=== PATIENT | female | born 1985 | race Asian ===

== ENCOUNTER 2016-05-23 18:35 | Emergency (ER) | payer OTHER ==
[~2016-05-23] VITALS: Ht 144.8 cm; Wt 66.8 kg
[2016-05-23 18:38] VITALS: BP 148/99; PULSE 70; RESP 20; O2SAT 99
--- NOTE | 2016-05-23 19:05 | ED.REPORT ---
HPI-General Illness Date of Service May 23, 2016 ED Provider: Ever Santos MD Pt is a 30 y.o. female who presents to the ED c/o left breast pain onset 1 week ago. She reports that she experienced similar pain several months ago and there was no clear etiology. Pt denies currently breast feeding, estrogen therapy, and hx of DVT. Pt reports that her last period ended on 05/07/16. She also states that she had a mammogram performed last year. Nursing Notes Stated Complaint: LEFT BREAST PAIN Chief Complaint: General Complaint Nursing Notes Reviewed: Yes Allergies: Coded Allergies: shellfish derived (Verified Allergy, Severe, 05/23/16) hydromorphone (Verified Allergy, Intermediate, 05/23/16) Scheduled PRN Ibuprofen (Ibuprofen) 800 Mg Tablet 800 MG PO TID PRN PRN For Pain General Time Seen by MD: 18:49 Chief Complaint Other (Left breast pain) Hx Obtained From: Patient Arrived By: Walk-in Sudden in Onset?: Yes Onset Occurred: 1 week ago Symptom Duration: Since onset Quality: Painful Severity: Current: Moderate Recent Healthcare: No recent doctor visit, No recent hospitalization Similar Sx Previous: Yes Past Medical History Past Medical History Reports: Asthma Past Surgical History None-reported Ambulatory Status Independent Review of Systems Full Review of Systems Cardiovascular: Reports: Chest pain (Left breast) Complete sys rev & neg: except as marked. Physical Exam Vital Signs Vital Signs Date Time Temp Pulse Resp B/P Pulse Ox O2 Delivery O2 Flow Rate FiO2 05/23/16 18:38 36.7 70 20 148/99 99 Room Air Initial VS: Reviewed General/Constitutional: Well-developed, Well-nourished Head / Eyes: Atraumatic, Normocephalic Abdomen / GI: Soft, Non-tender Extremities: Vascular intact, Neuro intact Skin: Warm, Dry, No cyanosis Neurologic: Alert, Oriented, Nonfocal Psychiatric: Mood/affect normal, Behavior normal, Normal thought content General/Constitutional: Awake, Alert, No acute distress, Well appearing, Well developed, Well hydrated, Well nourished, Not toxic appearing Respiratory / Chest: Atraumatic, Breath sounds NL, Breath sounds = bilat, No respiratory distress, No rales, No rhonchi, No wheezing, No retractions, No stridor Breast: Positive: Tenderness L, Negative: Erythema L, Nipple discharge L Fibrocystic changes in left breast upon examination. [employer] Equipment Mechanic present Cardiovascular: Heart rate NL, Regular rhythm, Heart sounds NL, Cap refill not delayed, Peripheral circulation NL Re-Eval/Medical Decision Med Decision/Clinical Course 30-year-old female presenting complaining of left breast pain 1 week. On exam she has some left breast likely fibrocystic changes lump be less than half centimeter not firm, mobile at 3:00 3 cm from nipple that are tender. No evidence of abscess or infection. Suspect likely due to fibrocystic changes. She is perc negative. Recommend she follow up with her primary doctor next week for possible ultrasound if symptoms continue. Return precautions regarding any new or worsening symptoms or any sign symptoms of infection. Source of Hx: Old records Time of Eval: 19:38 Re-Evaluation/Progress Note: Pt rechecked. Examination performed with garage supervisor present. Discussed plan for discharge, pt understands and agrees with plan. Counseled Regarding: Diagnosis, Need for follow-up, When/why to return to ED Discharge & Departure Primary Impression: Breast pain, left Disposition: Home Discharge Condition All VS Reviewed: Yes Additional Instructions: You were seen here today for left breast pain. Take ibuprofen as needed for pain. Follow-up with your primary care provider in the next 2-3 days if your pain has not improved. Seek care if you begin to experience redness, swelling, discharge, chest pain, shortness of breath, or any new or worsening symptoms. Referrals: [facility] Scribe Attestation Portions of this note were transcribed by Dinesh Kennedy I, Dr. Santos personally performed the history, physical exam and medical decision-making; I reviewed and confirmed the accuracy of the information in the transcribed note. Signed by: Armen Head, 05/23/16 and 2009. copies to: [facility] Ever Santos MD May 23, 2016 19:05 DINESH KENNEDY May 23, 2016 19:30
[2016-05-23] MEDS ORDERED: IBUP800T28 PO (19:44)
== END 2016-05-23 20:14 | disposition home or self-care (01) ==
LOC: SED 18:35
DX: N64.4 Mastodynia (principal)